=== PATIENT | female | born 1960 | race Caucasian/White ===

== ENCOUNTER 2019-07-28 12:35 | Emergency (ER) | payer MEDICAID ==
[~2019-07-28] VITALS: Ht 160 cm; Wt 118.2 kg
[2019-07-28] MEDS ORDERED: IBUPROFEN 800 MG TABLET PO ONE (13:15)
[2019-07-28] MEDS ORDERED: ACETAMINOPHEN 325 MG TABLET PO ONE (14:00)
[2019-07-28] MEDS ORDERED: CYCLOBENZAPRINE HCL 10 MG TABLET PO ONE (14:00)
[2019-07-28 15:31] VITALS: BP 125/89
== END 2019-07-28 15:32 | disposition home or self-care (01) ==
LOC: EMS 12:38 → EDBD 12:38 → EMS 15:32
DX: S83.91XA Sprain of unspecified site of right knee, initial encounter (principal); S83.92XA Sprain of unspecified site of left knee, initial encounter; S33.5XXA Sprain of ligaments of lumbar spine, initial encounter; E03.9 Hypothyroidism, unspecified; X50.0XXA Overexertion from strenuous movement or load, initial encounter; Y93.01 Activity, walking, marching and hiking; Y92.89 Other specified places as the place of occurrence of the external cause; Y99.8 Other external cause status